=== PATIENT | male | born 1955 | race African-American/Black ===

== ENCOUNTER 2022-05-13 17:09 | Inpatient (IN) | payer OTHER ==
[~2022-05-13] VITALS: Ht 170.2 cm; Wt 63.5 kg
[2022-05-13 17:20] VITALS: BP 105/60; TEMP 99.1
[2022-05-13 17:37] LABS: PLATELET COUNT 216 K/uL (142-355)
[2022-05-13 17:45] LABS: POTASSIUM 5.1 mmol/L (3.6-5.2)
[2022-05-13 21:46] VITALS: BP 107/61; TEMP 98.2; Ht 170.2 cm; Wt 63.5 kg
[2022-05-14] VITALS: BP 114/64; TEMP 99
[2022-05-14 04:00] VITALS: BP 112/62; TEMP 99.7
[2022-05-14 06:27] LABS: PLATELET COUNT 212 K/uL (142-355)
[2022-05-14 06:28] LABS: POTASSIUM 5.3 mmol/L (3.6-5.2)
[2022-05-14 07:40] VITALS: BP 96/44; TEMP 97.6
[2022-05-14] MEDS ORDERED: MOBIC7.5 M1 PO (13:55)
[2022-05-14] MEDS ORDERED: ZOLOFT25 MG PO (13:55)
[2022-05-14] MEDS ORDERED: FLUO10CA2 PO (13:56)
[2022-05-14] MEDS ORDERED: LEVEMIR FL100 UNIT/M SC (13:57)
[2022-05-14 20:18] VITALS: BP 89/47; TEMP 98.4
[2022-05-15 01:15] VITALS: BP 110/56; TEMP 98.7
[2022-05-15 05:15] VITALS: BP 110/49; TEMP 99.9
[2022-05-15 08:00] VITALS: BP 100/49; TEMP 99.4
[2022-05-15 21:00] VITALS: BP 103/55; TEMP 98.5
[2022-05-16] VITALS: BP 109/62; TEMP 98.9
[2022-05-16 05:15] VITALS: BP 95/59; TEMP 98.6
[2022-05-16 09:15] VITALS: BP 101/50; TEMP 98.7
== END 2022-05-16 13:00 | disposition home health service (06) | DRG 377 ==
LOC: ED 17:09 → EDBD 17:09 → MED/SURG 18:36
PROVIDERS: ADMIT Family Medicine; ATTEND Internal Medicine
PROC: 0HQ0XZZ Repair Scalp Skin, External Approach (ICD-10-PCS; principal; 2022-05-14)
DX: K92.0 Hematemesis (principal); G92.8 Other toxic encephalopathy; C22.0 Liver cell carcinoma; C22.8 Malignant neoplasm of liver, primary, unspecified as to type; C78.00 Secondary malignant neoplasm of unspecified lung; C77.8 Secondary and unspecified malignant neoplasm of lymph nodes of multiple regions; I85.00 Esophageal varices without bleeding; E86.0 Dehydration; D64.89 Other specified anemias; R62.7 Adult failure to thrive; S01.81XA Laceration without foreign body of other part of head, initial encounter; W18.39XA Other fall on same level, initial encounter; Y92.230 Patient room in hospital as the place of occurrence of the external cause
CPT/HCPCS: 36415; 80053; 82948; 83735; 84100; 85014; 85018; 85027; 96361; 96374; 96375; 96376; 99284; J2001; J2060; J2270; J2405; J3490